=== PATIENT | male | born 1990 | race Caucasian/White ===

== ENCOUNTER 2019-09-30 13:43 | Emergency (ER) | payer MEDICAID, SELFPAY ==
[2019-09-30 14:05] VITALS: BP 121/61; PULSE 80; RESP 16; TEMP 36.8; O2SAT 96
--- NOTE | 2019-09-30 15:46 | ED_ITS ---
HPI - Dental/Oral General Chief complaint: Dental/Oral Stated complaint: absess tooth Source: patient Mode of arrival: ambulatory Limitations: no limitations History of Present Illness HPI Narrative: Patient presents with dental inflammation has history of dental caries and has a left lower molar gum inflammation with surrounding jaw inflammation with a tender submandibular gland with no fever chills no nausea v omiting and no shortness of breath. Location: Tooth # Onset (ago): day(s) Duration: intermittent Severity: mild Severity scale (1-10): 1 Relieving factors: NSAIDs Exacerbating factors: chewing Context: history of dental caries Associated symptoms: gum swelling Treatment prior to arrival: none Related Data Allergies Allergy/AdvReac Type Severity Reaction Status Date / Time No Known Allergies Allergy Verified 09/30/19 14:51 Review of Systems Review of Systems: All systems reviewed & are unremarkable except as noted in HPI and below Exam Const: General: no acute distress and alert Orientation/consciousness: patient oriented x3 HENMT: Mouth: Yes Abnormal oral and palatal mucosa present Teeth and gingiva: dentition normal and abnormal tooth and associated gingiva Eyes: Conjunctivae: conjunctivae normal Pupils: Equal, round and reactive pupils present Neck: Neck: normal visual inspection and lymphadenopathy Chest: Chest palpation & inspection: normal inspection of the chest Resp: Effort & Inspection: normal respiratory effort Cardio: Rate: regular rate Rhythm: regular rhythm : Testes: Testes normal Skin: General skin exam: normal color Rashes: no rashes Neuro: General: patient oriented x3, moves all extremities, no meningeal signs and no focal motor deficits Extrem: General: normal to inspection Psych: Mental Status: mental status grossly normal Course Vital Signs Vital signs: Vital Signs Temperature 36.8 C 09/30/19 14:05 Pulse Rate 80 09/30/19 14:05 Respiratory Rate 16 09/30/19 14:05 Blood Pressure 121/61 09/30/19 14:05 Pulse Oximetry 96 09/30/19 14:05 Temperature 36.8 C 09/30/19 14:05 Pulse Rate 80 09/30/19 14:05 Respiratory Rate 16 09/30/19 14:05 Blood Pressure 121/61 09/30/19 14:05 Pulse Oximetry 96 09/30/19 14:05 Critical Care Time Critical Care Time Critical Care Time: No Discharge Plan Discharge Clinical Impression: Dental abscess Patient Disposition: Home, Self-Care Condition: Stable Instructions: Antibiotic Form, Dental Abscess (ED) Additional Instructions: Take medicine as prescribed, can take ibuprofen 400 mg twice daily with meals x1 week. Follow-up with dentist as soon as possible for further evaluation and treatment. Prescriptions: New amoxicillin 500 mg tablet 500 mg PO TID Qty: 30 RF: 0 Follow-up/Referrals: Faviola,MD Sebastián [Primary Care Provider] - Stand Alone Forms: Work/School Release IP Time of Disposition: 15:50
[2019-09-30 15:55] VITALS: RESP 14
== END 2019-09-30 15:55 | disposition home or self-care (01) ==
PROVIDERS: Emergency Provider Emergency Medicine; PCP Family Medicine
DX: K04.7 Periapical abscess without sinus (principal)
CPT/HCPCS: 99283